=== PATIENT | female | born 1950 | race Caucasian/White ===

== ENCOUNTER 2023-04-18 10:48 | Emergency (ER) | payer MEDICARE, OTHER, SELFPAY ==
[2023-04-18 10:58] VITALS: BP 142/84; PULSE 71; RESP 20; TEMP 36.3; O2SAT 96; BMI 70.8
--- NOTE | 2023-04-18 11:58 | CRLHL7_ITS ---
For Patients: As a result of the Century Cures Act, medical imaging exams and procedure reports are released immediately into your electronic medical record. You may view this report before your referring provider. If you have questions, please contact your health care provider. Indication: Right ankle injury Technique: Three views of the right ankle and three views of the right foot Comparison: None. Findings/impression: No acute fracture or malalignment. No suspicious osseous lesions. No significant degenerative changes. Plantar and Achilles aspect calcaneal enthesophytes. There may be very mild soft tissue swelling about the ankle and along the dorsal aspect of the foot. Dictated by Juvenal Perez MD @ 04/18/2023 1:28:29 PM (Electronically Signed)
--- NOTE | 2023-04-18 11:58 | ED.GENADULT ---
HPI - General Adult General Chief complaint: Extremity Pain/Injury, Lower Stated complaint: R foot injury Time Seen by Provider: 04/18/23 11:45 History of Present Illness HPI narrative: This 72-year-old female comes in for evaluation of an injury to her right ankle and foot that occurred just prior to arrival. She states that she was ambulating down some stairs and had 3 steps to go when her right knee gave out. She held onto the banister and did not fall but injured her right foot and ankle. She was able to get up an ambulate but has significant pain in her foot and ankle. She does not report any other injury except that she states she thinks she twisted her knee. Related Data Home Medications Medication Instructions Recorded Confirmed amlodipine 10 mg tablet 10 mg PO DAILY 04/18/23 04/18/23 hydrochlorothiazide 12.5 mg tablet 12.5 mg PO DAILY 04/18/23 04/18/23 levothyroxine 150 mcg tablet 150 mcg PO DAILY 04/18/23 04/18/23 omeprazole 20 mg capsule,delayed 20 mg PO DAILY 04/18/23 04/18/23 release potassium chloride 10 mEq 10 meq PO QID 04/18/23 04/18/23 tablet,extended release Allergies Allergy/AdvReac Type Severity Reaction Status Date / Time erythromycin base Allergy Severe Anaphylaxis Verified 04/18/23 11:05 levofloxacin [From Levaquin] Allergy Severe Verified 04/18/23 11:05 lisinopril Allergy Severe Verified 04/18/23 11:05 shellfish derived Allergy Severe Verified 04/18/23 11:05 Penicillins Allergy Intermediate Anaphylaxis Verified 04/18/23 11:03 pneumonia vaccine Allergy Severe Uncoded 04/18/23 11:05 flu vaccine Allergy Intermediate Uncoded 04/18/23 11:05 Review of Systems Status of ROS: Reports: 10 or more systems reviewed and unremarkable except as noted in History and below Narrative: Constitutional: No fevers, no weight gain or loss. Eyes: No discharge. No vision changes. HENT: No congestion, no sore throat, no ear pain. Cardiovascular: No chest pain, no palpitations. Respiratory: No shortness of breath, no wheezes, no cough. Gastrointestinal: No abdominal pain, no vomiting, no diarrhea. Genitourinary: No dysuria, no hematuria. Musculoskeletal: Right ankle and foot injury as described above. Skin: No rashes, no pruritis. Neurological: No dizziness, weakness, sensory change, speech change. Endo/Heme/Allergies: No bruising or bleeding. No polydipsia. Pysch: no suicidality, no anxiety, no insomnia. All other systems reviewed and are negative. Exam Narrative: Exam Narrative: Constitutional: Well-developed, well-nourished, no acute distress. HEENT: Normocephalic, atraumatic. Neck: Normal range of motion. Nontender. Supple. Heart: Intact distal pulses. Lungs: No chest discomfort. No wheezes, rhonchi, or rales. Abdomen: Nontender. Back: Normal range of motion. Extremities: Diffuse swelling and tenderness over the lateral aspect of the right ankle and over the dorsal aspect of her foot near her toes. Skin: Intact. No rash. Warm. No erythema or pallor. Neurologic: No altered sensation. No weakness. Alert and oriented. Psychiatric: No suicidality. No anxiety or depression. No insomnia. Nursing notes and vitals signs are reviewed. Const: Vital Signs, click to edit/add: Vital Signs - 24 hr 04/18/23 10:58 Temperature 97.4 F L Pulse Rate [Pulse Oximeter] 71 Respiratory Rate 20 Blood Pressure [Ri t Upper Arm] 142/84 H Pulse Oximetry 96 Oxygen Delivery Me thod Room Air Course Vital Signs Vital signs: Initial Vital Signs Temperature 97.4 F L 04/18/23 10:58 Temperature Source Temporal Artery Scan 04/18/23 10:58 Pulse Rate 71 04/18/23 10:58 Respiratory Rate 20 04/18/23 10:58 Blood Pressure 142/84 H 04/18/23 10:58 Blood Pressure Mean 103 04/18/23 10:58 Blood Pressure Position Sitting 04/18/23 10:58 Pulse Oximetry 96 04/18/23 10:58 Oxygen Delivery Method Room Air 04/18/23 10:58 Vital Signs Temperature 97.4 F L 04/18/23 10:58 Pulse Rate 71 04/18/23 10:58 Respiratory Rate 20 04/18/23 10:58 Blood Pressure 142/84 H 04/18/23 10:58 Pulse Oximetry 96 04/18/23 10:58 Oxygen Delivery Method Room Air 04/18/23 10:58 Temperature 97.4 F L 04/18/23 10:58 Pulse Rate 71 04/18/23 10:58 Respiratory Rate 20 04/18/23 10:58 Blood Pressure 142/84 H 04/18/23 10:58 Pulse Oximetry 96 04/18/23 10:58 Oxygen Delivery Method Room Air 04/18/23 10:58 Medical Decision Making MDM Narrative Medical decision making narrative: This patient stumbled when going down stairs but did not fall completely because she was holding onto a railing. She did injure her right foot and ankle. X-ray imaging shows no evidence of fracture or malalignment. The patient's ankle does not show any sign of joint effusion or ligament instability. I encouraged her to increase activity as tolerated. She did receive an Robert wrap and states that she has a cane at home that she can use if needed. The patient is ambulatory on is injury. Imaging Data XR R ankle: Radiologist's impression: No acute fracture or malalignment. No suspicious osseous lesions. No significant degenerative changes. Plantar and Achilles aspect calcaneal enthesophytes. There may be very mild soft tissue swelling about the ankle and along the dorsal aspect of the foot. XR R Foot: Radiologist's impression: No acute fracture or malalignment. No suspicious osseous lesions. No significant degenerative changes. Plantar and Achilles aspect calcaneal enthesophytes. There may be very mild soft tissue swelling about the ankle and along the dorsal aspect of the foot. Discharge Plan Discharge Clinical Impression: Ankle sprain and strain Patient Disposition: Home w/ Parent or Adult Condition: Stable Additional Instructions: Increase activity as tolerated. Use ikif-zhz-xwhkqde medicines also as needed and directed. Follow up with MD return if worsening. Prescriptions: No Action potassium chloride 10 mEq tablet extended release 10 meq PO QID amlodipine 10 mg tablet 10 mg PO DAILY levothyroxine 150 mcg tablet 150 mcg PO DAILY omeprazole 20 mg capsule,delayed release(DR/EC) 20 mg PO DAILY hydrochlorothiazide 12.5 mg tablet 12.5 mg PO DAILY Follow Up/Referrals: Deanna Reyes MD [Primary Care Provider] - Stand Alone Forms: [facility] Inst[facility]
[2023-04-18 13:47] VITALS: BP 140/91; PULSE 61; O2SAT 94
== END 2023-04-18 13:49 | disposition home or self-care (01) ==
PROVIDERS: Emergency Provider Emergency Medicine Emergency Medical Services; PCP Internal Medicine
DX: S93.401A Sprain of unspecified ligament of right ankle, initial encounter (principal)
CPT/HCPCS: 73610; 73630; 99283; 99284

== ENCOUNTER 2025-04-22 13:53 | Emergency (ER) | payer MEDICARE, OTHER, SELFPAY ==
--- OUTSIDE RECORDS SUMMARY | 2025-04-22 13:55 | XMS_ITS | Clinical Summary ---
Author Organization [facility] Address [address] [place] [address] Care Team Providers Care Wildlife Photographer Name Role Phone Deanna Reyes MD Primary Care Provider [phone] Allergies Active AllergyReactionsCriticalityNoted DateCommentsErythromycinShortness Of Breath,VuomhtdgnjzvMeljlx63/07/2006 racing heart. Influenza Virus VaccinesVestibular Llsdnuia68/16/2025LevofloxacinRashLow 04/15/2008Lisinopril*Unknown - Follow up wtknen863PenicillinsShortness Of QuajwqLquxnf60/07/2006 Arm swelling Pneumococcal VaccineShortness Of JynroeFlqznb77/19/2016 Mouth numbness PrednisoneShortness Of Breath,MlnxfdyaxqgaHmqfkx84/07/2006 tachycardia Shellfish Containing QqcfameqIpgoqj67/04/2007 Stomach upset PsuzhbmpfdakloCvqh64/04/2008dhesive CepvVnkdAypvgx51/06/2008Tetanus-Diphtheria Toxoids-TdOther - Describe In Comment OjrjwJbefze56/11/2009 And pertussis-- caused arm swelling Medications MedicationSigDispense QuantityRefillsLast FilledStart DateEnd DateStatus IBUPROFEN 200 MG TAB TAKE 2 EVERY 4-6 HOURS NEEDED.ctive cholecalciferol (VITAMIN D) 1,000 unit capsule Take 1 capsule by mouth once daily.ctive medication order composer Zinc 50 tablet twice weekly. ctive Lactobac. rhamnosus GG-inulin 10 billion cell -200 mg chew Take by mouth. Taking one tablet daily. 002/01/2021Active triamcinolone (ARISTOCORT; KENALOG) 0.1 % cream Indications:Skin lesionAPPLY TOPICALLY TO AFFECTED AREA(S) TWO TIMES DAILY 30 g 3Active amLODIPine (NORVASC) 10 mg tablet Indications:HypertensionTake 1 Tablet (10 mg) by mouth once daily. 90 Tablet 5Active hydroCHLOROthiazide 12.5 mg tablet Indications:HypertensionTake 1 Tablet (12.5 mg) by mouth once daily. 90 Tablet 5Active levothyroxine (SYNTHROID) 150 mcg tablet Indications:Acquired hypothyroidismTake 1 Tablet (150 mcg) by mouth before breakfast. BEFORE BREAKFAST 90 Tablet 5Active potassium chloride (K-TAB) 10 mEq extended-release tablet Indications:HypokalemiaTake 2 Tablets (20 mEq) by mouth two times daily with meals. 360 Tablet 5Active omeprazole (PRILOSEC) 20 mg Delayed-Release capsule Indications:Gastroesophageal reflux disease without esophagitisTake 1 Capsule (20 mg) by mouth once daily before a meal. 90 Capsule 5Active Active Problems ProblemNoted DateDiagnosed DateTobacco use /01/2021Adenomatous colon polyp09/06/2012 Overview (09/06/2012): Colonoscopy 08/2012 polyps repeat in 5 years Dacpobxoxp85/22/2010 Overview (06/21/2009): Lowest T-score -1.9 Vitamin D itrbwjdnec36/20/2009 Overview (06/21/2009): Level 6.9 Hrbfqjcoxxx27/25/2009bdominal pain, unspecified site07/25/2007 Overview (08/22/2007): Severe, intermittent EGD neg for ulcer CT scan shows abnormality at pancreas, but amylase/lipase normal HypertensionHypothyroidismEsophageal refluxIBS (irritable bowel syndrome) Microscopic colitis Overview (01/04/2010): Seen on colonoscopy 2007 Resolved Problems ProblemNoted DateDiagnosed DateResolved DateMorbid vbbaiof45 Immunizations ImmunizationAdministration DatesNext DueAMB Influenza, IIV3 (Age >=3 years)(Flu Clinic Only)02/05/2009COVID-19 VACCINE SPIKEVAX (MODERNA 50MCG/0.5ML) 12YO+ PFS 3COVID-19 vaccine (Pfizer-BioNTech 30mcg/0.3mL) 12YO+ BIVALENT PF, MDV 3COVID-19 vaccine (Pfizer-BioNTech 30mcg/0.3mL) PF, MDV08/10/2020, 07/20/2020Influenza, IIV3 (Age >=3 years)02/05/2009,04/06/2003Pneumococcal conj 13-Valent (Prevnar 13)06/10/2014Tdap106/03/2005 Family History Medical HistoryRelationNameCommentsOtherBrother 1Georgeserious fallLung cancer Brother 2DarwinAlcoholismBrother 3RalphKidney failureBrother 3RalphHeart attack Brother 4AlfredOtherBrother 5KennyMVALung cancerBrother 6JimCancerMotherbrain HypertensionMotherCancer-breastPaternal AuntLung cancerSister 1MelvaHeart attack Sister 2MargaretHeart attackSister 3SharonRheum arthritisSister 3SharonDiabetes Son 1RonnieCancer-ovarianNo Family HistoryRelationNameStatusCommentsBrother 1 GeorgeDeceasedBrother 2DarwinDeceasedBrother 3RalphDeceasedBrother 4Alfred DeceasedBrother 5KennyDeceased (Age 22)Brother 6JimDeceasedBrother 7WalterAlive MotherDeceasedbrain cancerPaternal AuntSister 1MelvaDeceasedSister 2Margaret AliveSister 3SharonAliveSon 1RonnieAliveSon 2BrianAlive Social History Tobacco UseTypesPacks/DayYears UsedDateSmoking Tobacco: Every QsjPciaqzzylu901 Smokeless Tobacco: Never Tobacco Cessation:Ready to Q uit: Not Asked; Counseling Given: Not Answered Comments:smoked for many years pt ed given Alcohol UseStandard Drinks/WeekCommentsNo0 (1 standard drink = 0.6 oz pure alcohol)PHQ-2AnswerDate RecordedPHQ-2 TOTAL [id number] Resource StrainAnswerDate RecordedDifficulty of Paying Living ExpensesNot on file 2Difficulty of Paying Living ExpensesNot on file2 CommentsNoSex and Gender InformationValueDate RecordedSex Assigned at BirthNot on fileLegal GquDzwhdl28/14/2013 5:23 AM CSTGender IdentityNot on fileSexual OrientationNot on fileOccupationIndustryJob Start DateJob End DateNot on fileNot on fileNot on fileNot on file Obstetrics History GravidaParaTermPretermABIABSABEctopicMultipleLivingLive Pjlgru24393ZaclOcoqqncTH Total LaborLabor/2nd/9kiPhfatkStuVlzdPowfOHQOyzZ9U9SscgBwlfZFZPpooPuow Last Filed Vital Signs Vital SignReadingTime TakenCommentsBlood Taeejabz477/68005/15/2024 3:40 PM TOILET ATTENDANT Rzwdo817005/15/2024 3:40 PM WDFRnvqruwhubg59.5 ??C (97.7 ??F)04/17/2023 8:25 AM CSTRespiratory Uiwp633005/11/2020 10:44 AM CSTOxygen Ljgdkrfjqd46%05/16/2023 11:47 AM CSTInhaled Oxygen Concentration--Xmfoni32 kg (191 lb 12.8 oz)05/15/2024 3:40 PM JKNOvtoaa707.6 cm (5' 4)05/15/2024 3:40 PM CSTBody Mass Index32.9205/15/2024 3:40 PM TOILET ATTENDANT Plan of Treatment Health MaintenanceDue DateLast DoneCommentsLow Dose CT (for lung CA) age 50-80 1998DEXA/DXA scan for age 65+Medicare Wellness for age 65+2013RSV vaccine for adults or (1 - 1-dose 75+ series) 4COVID-19 vaccine series ( season)509/07/2023, 04/17/2023, 05/31/2022, Additional history existsInfluenza Vaccine (#1) , 02/05/2009, 04/06/2003BMI (ht and wt on same day) for age 18+6005/15/2024, 05/16/2023, 04/17/2023, Additional history exists Depression screening for age 12+601/, 05/31/2022, 05/31/2020, Additional history existsHepatitis C screening for age 18-71Kavtnqlfo79/03/2020 Hepatitis B series for 19+Aged OutNo longer eligible based on patient's age to complete this topic Procedures Procedure NamePriorityDate/TimeAssociated DiagnosisCommentsANTI HCVRoutine 06/02/2019 12:31 PM TOILET ATTENDANT Need for hepatitis C screening test XR DXA BONE DENSITY 2 SITES EMUOVFtsyohn77/16/2009 Menopause from Last 3 Months or Most Recently Relevant to Health Maintenance Results * ANTI HCV (06/02/2019 12:31 PM TOILET ATTENDANT)ComponentValueRef RangeTest MethodAnalysis TimePerformed AtPathologist SignatureHEPATITIS C ANTIBODYNon-Reactive Non-Ezmhappy59/04/2020 12:53 AM CSTDOCTORS HOSP[facility] OF MANTECAAdvanced [facility] Comment:Antibodies to HCV not detected; does not exclude the possibility of exposure to HCV.Specimen (Source)Anatomical Location / LateralityCollection Method / VolumeCollection TimeReceived TimeBloodBLOOD SPECIMEN / Unknown Venipuncture / Ihmatzi8906/02/2019 12:31 PM CST06/02/2019 12:33 PM TOILET ATTENDANT Narrative Authorizing ProviderResult TypeResult StatusDeanna Reyes MDSEND OUTSFinal ResultPerforming OrganizationAddressCity/State/ZIP CodePhone Number [facility] [employer] [facility] [address] [place] [address], * XR DEXA BONE DENSITY 2 SITES (03/15/2009)Anatomical RegionLateralityModality Spine, HIPS, HIPL, HIPRBone DensitometrySpecimen (Source)Anatomical Location / LateralityCollection Method / VolumeCollection TimeReceived Time Narrative Authorizing ProviderResult TypeResult StatusDeanna Reyes MDDEXAFinal Result from Last 3 Months or Most Recently Relevant to Health [place] [id number] Care Teams Team MemberRelationshipSpecialtyStart DateEnd Date Deanna Reyes MD [address] [place] [address] PCP - Svkvwbl72/3/06
[2025-04-22 14:05] VITALS: BP 143/89; PULSE 92; RESP 16; TEMP 36.5; O2SAT 92; BMI 33.8
--- NOTE | 2025-04-22 14:07 | ED.GENADULT ---
HPI - General Adult General Chief complaint: Extremity Pain/Injury, Lower Stated complaint: leg pain Time Seen by Provider: 04/22/25 14:07 History of Present Illness HPI narrative: Patient here with right leg pain after fall today. Pain is just below the knee cap. 74-year-old woman presenting to the emergency department with complaint in her right knee area. She fell earlier today. No other injuries. Sounds to have fallen directly onto her knee. Was seen recently in this department and diagnosed with a right ankle sprain/strain. Related Data Home Medications ?Medication ?Instructions ?Recorded ?Confirmed amlodipine 10 mg tablet 10 mg PO DAILY 04/18/23 04/18/23 hydrochlorothiazide 12.5 mg tablet 12.5 mg PO DAILY 04/18/23 04/18/23 levothyroxine 150 mcg tablet 150 mcg PO DAILY 04/18/23 04/18/23 omeprazole 20 mg capsule,delayed 20 mg PO DAILY 04/18/23 04/18/23 release potassium chloride 10 mEq 10 meq PO QID 04/18/23 04/18/23 tablet,extended release Allergies Allergy/AdvReac Type Severity Reaction Status Date / Time erythromycin base Allergy Severe Anaphylaxis Verified 04/18/23 11:05 levofloxacin (From Levaquin) Allergy Severe Verified 04/18/23 11:05 lisinopril Allergy Severe Verified 04/18/23 11:05 shellfish derived Allergy Severe Verified 04/18/23 11:05 Penicillins Allergy Intermediate Anaphylaxis Verified 04/18/23 11:03 pneumonia vaccine Allergy Severe Uncoded 04/18/23 11:05 flu vaccine Allergy Intermediate Uncoded 04/18/23 11:05 Review of Systems Status of ROS: Reports: 6 or more systems reviewed and unremarkable except as noted in History and below Exam Narrative: Exam Narrative: Pleasant. NAD. Skin is warm and dry. Head looks atraumatic. Moving upper extremities without difficulty. No injuries here. Examination of the right leg, knee in question does show some faint erythema anterior knee. She does not have significant pain though to palpation of the kneecap. No deformity appreciated. Intact patellar tendon. No laxity to varus or valgus stressors. Negative Kaylene's. I do not appreciate an significant effusion. No apprehension to manipulation of the patella. Painful flexion extension of the knee but possible. Later in course does acknowledge that her wrists are little sore but palpation here does not elicit any clear/signified pain. Good range of motion. Const: Vital Signs, click to edit/add: Vital Signs - 24 hr 04/22/25 14:05 Temperature 97.7 F Pulse Rate [Pulse Oximeter] 92 Respiratory Rate 16 Blood Pressure [Ri ght Upper Arm] 143/89 H Pulse Oximetry 92 Oxygen Delivery Me thod Room Air Documenting provider has reviewed patient's vital signs: yes Course Vital Signs Vital signs: Initial Vital Signs Temperature 97.7 F 04/22/25 14:05 Temperature Source Temporal Artery Scan 04/22/25 14:05 Pulse Rate 92 04/22/25 14:05 Respiratory Rate 16 04/22/25 14:05 Blood Pressure 143/89 H 04/22/25 14:05 Blood Pressure Mean 107 H 04/22/25 14:05 Blood Pressure Position Sitting 04/22/25 14:05 Pulse Oximetry 92 04/22/25 14:05 Oxygen Delivery Method Room Air 04/22/25 14:05 Vital Signs Temperature 97.7 F 04/22/25 14:05 Pulse Rate 92 04/22/25 14:05 Respiratory Rate 16 04/22/25 14:05 Blood Pressure 143/89 H 04/22/25 14:05 Pulse Oximetry 92 04/22/25 14:05 Oxygen Delivery Method Room Air 04/22/25 14:05 Temperature 97.7 F 04/22/25 14:05 Pulse Rate 92 04/22/25 14:05 Respiratory Rate 16 04/22/25 14:05 Blood Pressure 143/89 H 04/22/25 14:05 Pulse Oximetry 92 04/22/25 14:05 Oxygen Delivery Method Room Air 04/22/25 14:05 Medical Decision Making MDM Narrative Medical decision making narrative: I suspect this is more of a contusion. Limited pain suggests against patellar fracture though this would be potential given mechanism. Otherwise pain secondary to irritation of the patellofemoral compartment most likely. Does not appear to have subluxed. Does not feel like she needs anything for pain at this time. Would recommend icing. Three-view of the right knee independently reviewed by me looks to be WNL with some degenerative changes generally. Patella looks to be intact. Radiology over-read below Indication: Trauma. Technique: Right knee, 3 views. Comparison: None. Findings/Impression: Bones: Alignment is normal. Subtle lucency involving the anterior patella, favored to reflect nutrient channel. Recommend correlation with point tenderness to exclude nondisplaced fracture. Otherwise, no displaced fractures or bone lesions. Joint spaces: Mild tricompartmental degenerative changes. Soft tissues: Unremarkable. Dictated by Dionte Trimble MD @ 04/22/2025 2:38:26 PM Placed in knee immobilizer. Able to bear weight. See patient discharge plan for further discussion Like you said, would ice your knee 2-3 times daily over the next few days. Wear this knee immobilizer as needed for comfort over this next week. Temporarily and maybe with a little food can take up to 600 mg of ibuprofen 3 times daily or up to 1000 mg of acetaminophen per dose. Follow-up in 7-10 days if just not improving. Medical Records Medical records reviewed: Yes I reviewed the patient's medical records Discharge Plan Discharge Clinical Impression: Contusion of knee Patient Disposition: Home w/ Parent or Adult Condition: Stable Additional Instructions: Like you said, would ice your knee 2-3 times daily over the next few days. Wear this knee immobilizer as needed for comfort over this next week. Temporarily and maybe with a little food can take up to 600 mg of ibuprofen 3 times daily or up to 1000 mg of acetaminophen per dose. Follow-up in 7-10 days if just not improving. Prescriptions: No Action potassium chloride 10 mEq tablet extended release 10 meq PO QID amlodipine 10 mg tablet 10 mg PO DAILY levothyroxine 150 mcg tablet 150 mcg PO DAILY omeprazole 20 mg capsule,delayed release(DR/EC) 20 mg PO DAILY hydrochlorothiazide 12.5 mg tablet 12.5 mg PO DAILY Follow Up/Referrals: Deanna Reyes MD [Primary Care Provider, Internal Medicine] Stand Alone Forms: [employer] Info Instructions
--- NOTE | 2025-04-22 14:16 | CRLHL7_ITS ---
For Patients: As a result of the Century Cures Act, medical imaging exams and procedure reports are released immediately into your electronic medical record. You may view this report before your referring provider. If you have questions, please contact your health care provider. Indication: Trauma. Technique: Right knee, 3 views. Comparison: None. Findings/Impression: Bones: Alignment is normal. Subtle lucency involving the anterior patella, favored to reflect nutrient channel. Recommend correlation with point tenderness to exclude nondisplaced fracture. Otherwise, no displaced fractures or bone lesions. Joint spaces: Mild tricompartmental degenerative changes. Soft tissues: Unremarkable. Dictated by Dionte Trimble MD @ 04/22/2025 2:38:26 PM (Electronically Signed)
== END 2025-04-22 15:22 | disposition home or self-care (01) ==
PROVIDERS: Emergency Provider Family Medicine; PCP Internal Medicine
DX: S80.01XA Contusion of right knee, initial encounter (principal)
CPT/HCPCS: 73562; 99283; 99284